=== PATIENT | male | born 1935 | race Caucasian/White ===

== ENCOUNTER 2019-11-04 09:56 | Inpatient (IN) ==
[2019-11-04] MEDS ORDERED: Haloperidol Oral Conc 10 MG/5 ML UDC PO PRN (16:13)
[2019-11-04] MEDS ORDERED: *HR* FentaNYL PATCH 12 MCG PATCH TD SCH (16:15)
[2019-11-04] MEDS: *HR* OxyCODONE Immed Rel 5 MG TABLET PO PRN (17:25)
[2019-11-04] MEDS: Haloperidol Oral Conc 10 MG/5 ML UDC PO SCH (20:20)
[2019-11-04] MEDS: Sennosides/Docusate Sodium TABLET PO SCH (20:27)
[2019-11-05] MEDS: Haloperidol Oral Conc 10 MG/5 ML UDC PO SCH ×4 (01:18→21:43)
[2019-11-05 07:10] LABS: BUN/Creatinine Ratio 27 (6-26); Blood Urea Nitrogen 22 mg/dL (8-23); Calcium 7.6 mg/dL (8.6-10.3); Carbon Dioxide 24 mEq/L (23-29); Chloride 102 mEq/L (98-107); Glucose 75 mg/dL (70-105); Osmolality,Calculated 278 (280-300); Potassium 4.3 mEq/L (3.5-5.1); Sodium 133 mEq/L (136-145); eGFR For African Americans > 60 (> 60); eGFR For Non-African Americans > 60 (> 60)
[2019-11-05] MEDS: Sennosides/Docusate Sodium TABLET PO SCH ×2 (09:50→21:47)
[2019-11-05] MEDS: *HR* FentaNYL PATCH 12 MCG PATCH TD SCH (11:24)
[2019-11-05] MEDS: *HR* OxyCODONE Immed Rel 5 MG TABLET PO PRN (21:47)
[2019-11-06] MEDS: Haloperidol Oral Conc 10 MG/5 ML UDC PO SCH ×5 (00:58→22:20)
[2019-11-06 05:30] LABS: Basophils % 0.2 %; Eosinophils # 0.1 K/mcL (0.0-0.6); Eosinophils % 0.9 %; Hematocrit 25.9 % (37.5-50.1); Hemoglobin 8.4 g/dL (12.9-16.9); Immature Granulocytes % 1.4 % (0-4); Lymphocytes # 0.4 K/mcL (0.6-4.6); Mean Corpuscular HGB Conc 32.4 g/dL (31.6-35.5); Mean Corpuscular Hemoglobin 35.6 pg (28.0-33.3); Mean Corpuscular Volume 109.7 fL (83.0-100.0); Mean Platelet Volume 10.6 fL (9.4-12.4); Monocytes # 0.9 K/mcL (0.0-1.3); Monocytes % 7.2 %; Neutrophils # 11.2 K/mcL (1.6-8.9); Platelet Count 212 K/mcL (140-400); Red Blood Count 2.36 M/mcL (4.19-5.50); Red Cell Distribution Width 18.7 % (11.5-14.5); Segmented Neutrophils % 87.3 %; White Blood Count 12.8 K/mcL (4.3-11.1)
[2019-11-06] MEDS: Sennosides/Docusate Sodium TABLET PO SCH ×2 (08:58→22:20)
[2019-11-06] MEDS ORDERED: *HR* Alteplase (Cathflo) 2 MG VIAL IVP ONE (11:31)
[2019-11-06] MEDS: *HR* OxyCODONE Immed Rel 5 MG TABLET PO PRN (22:21)
[2019-11-07] MEDS: Sennosides/Docusate Sodium TABLET PO SCH ×2 (08:20→22:43)
[2019-11-07] MEDS: Haloperidol Oral Conc 10 MG/5 ML UDC PO SCH ×4 (08:20→22:44)
[2019-11-07] MEDS: *HR* OxyCODONE Immed Rel 5 MG TABLET PO PRN (22:43)
[2019-11-08] MEDS: Haloperidol Oral Conc 10 MG/5 ML UDC PO SCH ×3 (06:59→19:05)
[2019-11-08] MEDS: Sennosides/Docusate Sodium TABLET PO SCH ×2 (09:26→21:27)
[2019-11-08] MEDS: *HR* OxyCODONE Immed Rel 5 MG TABLET PO PRN ×2 (09:26→21:27)
[2019-11-08] MEDS: *HR* FentaNYL PATCH 12 MCG PATCH TD SCH (12:25)
[2019-11-09] MEDS: Haloperidol Oral Conc 10 MG/5 ML UDC PO SCH ×3 (01:25→12:11)
[2019-11-09] MEDS ORDERED: 0.9 % Sodium Chloride 1,000 ML IVC ONE (04:18)
[2019-11-09 05:39] LABS: Basophils % 0.2 %; Eosinophils % 0.1 %; Hematocrit 24.1 % (37.5-50.1); Hemoglobin 7.5 g/dL (12.9-16.9); Immature Granulocytes % 1.9 % (0-4); Lymphocytes # 0.2 K/mcL (0.6-4.6); Mean Corpuscular HGB Conc 31.1 g/dL (31.6-35.5); Mean Corpuscular Hemoglobin 35.9 pg (28.0-33.3); Mean Corpuscular Volume 115.3 fL (83.0-100.0); Mean Platelet Volume 11.3 fL (9.4-12.4); Monocytes # 0.7 K/mcL (0.0-1.3); Monocytes % 5.9 %; Neutrophils # 10.6 K/mcL (1.6-8.9); Nucleated Red Blood Cells 0.4 /100 WBC (0); Platelet Count 150 K/mcL (140-400); Red Blood Count 2.09 M/mcL (4.19-5.50); Red Cell Distribution Width 19.6 % (11.5-14.5); Segmented Neutrophils % 89.9 %; White Blood Count 11.8 K/mcL (4.3-11.1)
[2019-11-09 05:44] LABS: INR 2.4; Prothrombin Time 27.1 Seconds (9.4-12.1)
[2019-11-09 05:57] LABS: Alanine Aminotransferase 36 Units/L (7-52); Albumin 2.2 g/dL (3.5-5.7); Albumin/Globulin Ratio 0.8 (1.1-2.2); Alkaline Phosphatase 282 Units/L (34-104); Aspartate Amino Transferase 53 Units/L (13-39); BUN/Creatinine Ratio 33 (6-26); Bilirubin,Direct 1.6 mg/dL (0.0-0.2); Bilirubin,Indirect 1.2 mg/dL (0.0-1.0); Bilirubin,Total 2.8 mg/dL (0.3-1.0); Blood Urea Nitrogen 43 mg/dL (8-23); Carbon Dioxide 22 mEq/L (23-29); Chloride 99 mEq/L (98-107); Globulin 2.9 g/dL (2.4-3.5); Glucose 106 mg/dL (70-105); Osmolality,Calculated 283 (280-300); Potassium 3.9 mEq/L (3.5-5.1); Sodium 131 mEq/L (136-145); Total Protein 5.1 g/dL (6.4-8.9); eGFR For African Americans > 60 (> 60); eGFR For Non-African Americans 52 (> 60)
[2019-11-09 06:02] LABS: Calcium 7.4 mg/dL (8.6-10.3)
[2019-11-09] MEDS: Sennosides/Docusate Sodium TABLET PO SCH ×2 (09:05→21:52)
[2019-11-09] MEDS: calcitrioL 0.25 MCG CAPSULE PO SCH (12:11)
[2019-11-09 12:34] LABS: Hematocrit 24.9 % (37.5-50.1); Hemoglobin 7.8 g/dL (12.9-16.9)
[2019-11-09 12:58] LABS: Calcium 7.5 mg/dL (8.6-10.3); Magnesium 2.3 mg/dL (1.6-2.6); Potassium 4.1 mEq/L (3.5-5.1)
[2019-11-09] MEDS ORDERED: 0.9 % Sodium Chloride 500 ML IVC ONE (15:32)
[2019-11-09] MEDS ORDERED: *HR* OxyCODONE Immed Rel 5 MG TABLET PO PRN (15:33)
[2019-11-09] MEDS ORDERED: 0.9 % Sodium Chloride 250 ML ONE (16:08)
[2019-11-10 06:28] LABS: Hematocrit 28.2 % (37.5-50.1); Hemoglobin 9.3 g/dL (12.9-16.9); Mean Corpuscular Hemoglobin 34.8 pg (28.0-33.3); Mean Corpuscular Volume 105.6 fL (83.0-100.0); Mean Platelet Volume 10.9 fL (9.4-12.4); Platelet Count 135 K/mcL (140-400); Red Blood Count 2.67 M/mcL (4.19-5.50); Red Cell Distribution Width 21.5 % (11.5-14.5); White Blood Count 12.7 K/mcL (4.3-11.1)
[2019-11-10 06:46] LABS: Albumin 2.3 g/dL (3.5-5.7); Albumin/Globulin Ratio 0.8 (1.1-2.2); Bilirubin,Total 3.1 mg/dL (0.3-1.0); Calcium 7.6 mg/dL (8.6-10.3); Globulin 2.8 g/dL (2.4-3.5); Magnesium 2.3 mg/dL (1.6-2.6); Potassium 3.7 mEq/L (3.5-5.1); Total Protein 5.1 g/dL (6.4-8.9)
[2019-11-10] MEDS: calcitrioL 0.25 MCG CAPSULE PO SCH (08:35)
[2019-11-10] MEDS: Sennosides/Docusate Sodium TABLET PO SCH ×2 (08:35→21:05)
[2019-11-10] MEDS: rOPINIRole 0.25 MG TABLET PO SCH (08:55)
[2019-11-10] MEDS ORDERED: 0.9 % Sodium Chloride 250 ML IVC ONE (09:18)
[2019-11-10] MEDS: 0.9 % Sodium Chloride 1,000 ML IVC SCH ×2 (10:53→21:05)
[2019-11-10 17:36] LABS: Bilirubin,Urine Moderate (Negative); Blood,Urine Small (Negative); Clarity,Urine Clear (Clear); Color,Urine Amber (Yellow); Glucose,Urine (UA) Normal (Normal); Ketones,Urine Trace mg/dL (Negative); Leukocyte Esterase,Urine Negative (Negative); Nitrite,Urine Negative (Negative); PH,Urine 5.5 pH Units (5.0-8.0); Protein,Urine 100 mg/dL (Neg-Trace); Specific Gravity,Urine 1.025 (1.010-1.025); Urobilinogen,Urine Normal (Normal)
[2019-11-10 17:44] LABS: Bacteria,Urine Few per hpf (None-Few)
[2019-11-10] MEDS ORDERED: rOPINIRole 0.25 MG TABLET PO SCH (21:00)
[2019-11-11 06:08] LABS: Hematocrit 26.3 % (37.5-50.1); Hemoglobin 8.7 g/dL (12.9-16.9); Mean Corpuscular HGB Conc 33.1 g/dL (31.6-35.5); Mean Corpuscular Hemoglobin 35.8 pg (28.0-33.3); Mean Corpuscular Volume 108.2 fL (83.0-100.0); Mean Platelet Volume 10.9 fL (9.4-12.4); Platelet Count 119 K/mcL (140-400); Red Blood Count 2.43 M/mcL (4.19-5.50); White Blood Count 11.6 K/mcL (4.3-11.1)
[2019-11-11 06:19] LABS: Albumin 2.2 g/dL (3.5-5.7); Albumin/Globulin Ratio 0.8 (1.1-2.2); Bilirubin,Total 3.3 mg/dL (0.3-1.0); Calcium 7.4 mg/dL (8.6-10.3); Globulin 2.6 g/dL (2.4-3.5); Magnesium 2.3 mg/dL (1.6-2.6); Potassium 3.6 mEq/L (3.5-5.1); Total Protein 4.8 g/dL (6.4-8.9)
[2019-11-11] MEDS: 0.9 % Sodium Chloride 1,000 ML IVC SCH ×2 (08:31→21:16)
[2019-11-11] MEDS: calcitrioL 0.25 MCG CAPSULE PO SCH (08:31)
[2019-11-11] MEDS: Sennosides/Docusate Sodium TABLET PO SCH ×2 (08:33→21:08)
[2019-11-11] MEDS: *HR* FentaNYL PATCH 12 MCG PATCH TD SCH (12:21)
[2019-11-11] MEDS: rOPINIRole 0.25 MG TABLET PO SCH (13:41)
[2019-11-11] MEDS: rOPINIRole 0.25 MG TABLET PO PRN (21:08)
[2019-11-12] MEDS: 0.9 % Sodium Chloride 1,000 ML IVC SCH ×2 (04:39→13:38)
[2019-11-12 05:35] LABS: Hematocrit 26.7 % (37.5-50.1); Hemoglobin 8.5 g/dL (12.9-16.9); Mean Corpuscular HGB Conc 31.8 g/dL (31.6-35.5); Mean Corpuscular Hemoglobin 35.3 pg (28.0-33.3); Mean Corpuscular Volume 110.8 fL (83.0-100.0); Platelet Count 105 K/mcL (140-400); Red Blood Count 2.41 M/mcL (4.19-5.50); Red Cell Distribution Width 22.5 % (11.5-14.5); White Blood Count 12.5 K/mcL (4.3-11.1)
[2019-11-12 05:53] LABS: BUN/Creatinine Ratio 44 (6-26); Blood Urea Nitrogen 57 mg/dL (8-23); Calcium 7.3 mg/dL (8.6-10.3); Carbon Dioxide 20 mEq/L (23-29); Chloride 107 mEq/L (98-107); Glucose 89 mg/dL (70-105); Magnesium 2.3 mg/dL (1.6-2.6); Osmolality,Calculated 297 (280-300); Potassium 3.9 mEq/L (3.5-5.1); Sodium 136 mEq/L (136-145); eGFR For African Americans > 60 (> 60); eGFR For Non-African Americans 53 (> 60)
[2019-11-12] MEDS: rOPINIRole 0.25 MG TABLET PO PRN ×3 (06:23→19:40)
[2019-11-12] MEDS: calcitrioL 0.25 MCG CAPSULE PO SCH (09:42)
[2019-11-12] MEDS: Sennosides/Docusate Sodium TABLET PO SCH ×2 (09:42→19:52)
[2019-11-12] MEDS: tiZANidine 4 MG TABLET PO PRN (19:40)
[2019-11-13] MEDS: tiZANidine 4 MG TABLET PO PRN ×3 (02:42→22:25)
[2019-11-13] MEDS: Sennosides/Docusate Sodium TABLET PO SCH ×2 (09:56→19:43)
[2019-11-13] MEDS: calcitrioL 0.25 MCG CAPSULE PO SCH (09:57)
[2019-11-13] MEDS ORDERED: 0.9 % Sodium Chloride 500 ML IVC ONE (11:41)
[2019-11-13] MEDS ORDERED: 0.9 % Sodium Chloride 500 ML IV ONE (12:43)
[2019-11-13] MEDS: rOPINIRole 0.25 MG TABLET PO PRN ×2 (13:22→17:13)
[2019-11-13] MEDS ORDERED: rOPINIRole 0.25 MG TABLET PO SCH (21:00)
[2019-11-13] MEDS: Albumin 25% 25gram/100mL 25 GM/100 ML IV.SOLN IVC SCH ×2 (22:11→23:52)
[2019-11-14 05:41] LABS: Hematocrit 21.5 % (37.5-50.1); Mean Corpuscular HGB Conc 31.6 g/dL (31.6-35.5); Mean Corpuscular Hemoglobin 35.6 pg (28.0-33.3); Mean Corpuscular Volume 112.6 fL (83.0-100.0); Mean Platelet Volume 11.4 fL (9.4-12.4); Platelet Count 100 K/mcL (140-400); Red Blood Count 1.91 M/mcL (4.19-5.50); Red Cell Distribution Width 23.1 % (11.5-14.5)
[2019-11-14 05:44] LABS: Hemoglobin 6.8 g/dL (12.9-16.9)
[2019-11-14 05:55] LABS: BUN/Creatinine Ratio 48 (6-26); Blood Urea Nitrogen 62 mg/dL (8-23); Calcium 7.7 mg/dL (8.6-10.3); Carbon Dioxide 20 mEq/L (23-29); Chloride 108 mEq/L (98-107); Glucose 79 mg/dL (70-105); Osmolality,Calculated 301 (280-300); Potassium 3.9 mEq/L (3.5-5.1); Sodium 137 mEq/L (136-145); eGFR For African Americans > 60 (> 60); eGFR For Non-African Americans 53 (> 60)
[2019-11-14] MEDS ORDERED: 0.9 % Sodium Chloride 250 ML IVC SCH (06:15)
[2019-11-14 08:07] VITALS: BP 90/50
[2019-11-14] MEDS: rOPINIRole 0.25 MG TABLET PO PRN (08:47)
[2019-11-14] MEDS: Sennosides/Docusate Sodium TABLET PO SCH (09:09)
[2019-11-14] MEDS: calcitrioL 0.25 MCG CAPSULE PO SCH (09:09)
[2019-11-14] MEDS: tiZANidine 4 MG TABLET PO PRN (11:14)
[2019-11-14] MEDS: *HR* FentaNYL PATCH 12 MCG PATCH TD SCH (12:12)
== END 2019-11-14 12:22 | disposition short-term general hospital (02) | DRG 177 ==
LOC: INPGRE 14:33
PROVIDERS: ADMIT Family Medicine; ATTEND Family Medicine